=== PATIENT | male | born 2005 | race Caucasian/White ===

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

== ENCOUNTER 2025-03-14 07:00 | Outpatient (RCR) | payer OTHER, SELFPAY ==
--- NOTE | 2025-02-13 13:49 | HP.PTEVAL_ITS ---
Patient's Visit Information Visit Information Visit Information: CELESTINE BOWEN is a 20 year old M referred to Physical Therapy by LAZ GOMEZ with a diagnosis of FEMOROACETABULAR IMPINGEMENT AND SNAPPING MINERVA HIPS. Date of Evaluation: 02/04/25 Physical Therapist: Treva Maciel, PT, Cert MDT Visit Plan Frequency: 1-2x /Week Duration: 6 Weeks Plan: AVOID DEEP SQUATS AND EXTREME ROM/STRETCHING. FOCUS ON STRETCHING HIP FLEXORS ESPECIALLY ILIACUS IN COMFORTABLE RANGE/INTENSITY AND OTHER TIGHT HIP MUSCULATURE. STRENGTHEN HIP ABDUCTORS, GLUTS, CORE AND HIP EXTENSORS TO STABILIZE AND DECREASE JT STRESS. MANUAL THERAPY INCLUDING JT MOBS AND STM TO RESTORE MUCH NORMAL JT MECHANICS POSSIBLE AND REDUCE PAIN AND INFLAMMATION ALL IN PREPARATION FOR SURGERY. EXERCISE EX'S: CLAMSHELLS, BRIDGES, HIP HIKES, PLANKS, HSS, PIRIFORMIS STRETCHING, HIP FLEXOR STRETCHING, SL BALANCE AND DYNAMIC BALANCE ACTIVITIES. 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 Disability: NO Present symptoms: MINERVA HIP PAIN - BOTH ABOUT THE SAME. PAIN IS IN THE FRONT OF THE HIPS AND THE TIGHNESS IS ALL THROUGH THE FRONT AND OUTSIDE NOT SO MUCH THE BACK OF THE HIP JOINTS. Present since: ABOUT 7 YEARS. GENETIC CONDITION. Pain Scale: WORST 8/10, LEAST 2/10 Currently: 2/10 Is it getting better, worse or staying the same: GETTING WORSE Worse: ANY TYPE OF HIP STRETCHING, DISTANCE RUNNING (> 1 MILE), SEATED HIP ADDUCTOR STRENGTHENING, DEEP SQUATTING, LUNGES, SPLIT SQUATS, LONG PERIODS OF MVMT, WALKING EVEN LESS THAN A MILE - HIPS LOCK UP AND GET REALLY STIFF AND ONSET IS DELAYED. Better: NOTHING Disturbed sleep: ONLY IF LEGS MOVE AND PAIN IS PROVOKED BY THE MVMT Previous history/Previous treatment: NO FORMAL PT FOR HIPS OTHER THAN WHEN HERE FOR KNEE (MENISCUS TEAR 4 YEARS AGO). 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 YOGA FOR MOBILITY. MONTHS OF FOAM ROLLING FOR MOBILITY. NO MEDICAITONS, INJECTIONS OR SURGERIES. LOTS OF QUAD AND HIP FLEXOR STRENGTHENING AND HIP STRETCHING. ACCUPUNCTURE WITH NO BENEFIT. MASSAGE WITH NO BENEFIT. MULTIPLE CHIROPRACTORS - TRACTIONS, SACRAL MANIPULATIONS, SPINAL MANIPULATIONS, MANUAL STRETCHING AND OTHER EX'S - PAINFUL - TOLD ME TO WORK THROUGH THE PAIN. STATES ORTHO TOLD HIM TODAY THIS IS NOT BENEFICIAL BECAUSE IT IS THE BONE RUBBING. EVERY OTHER DOCTOR SAID STRENGTHEN YOUR QUADS. SPORTS MED ORTHO DR FROM [facility] TODAY SAID FOCUS MORE ON HIP FLEXORS (ILIACUS). HE REPORTS DOC TODAY SAID NOT TO FORCE STRETCHING. PATIENT REPORTS HIS DAD HAS THE SAME CONDITION AND BENEFITED FROM SURGERY TO SHAVE THE HIP BONE DOWN. STATES SURGERY IS ALSO RECOMMENDED FOR HIM. Treatment this episode: MELOXICAM Coughing/sneezing/straining: NEGATIVE FOR PAIN Gait: PATIENT DESCRIBES GAIT CHANGES FOLLOWS: WITH INCREASE DISTANCE AND PAIN GAIT TURNS INTO A WADDLE AND NEED TO USE TRUNK AND MOMENTUM TO SWING/ADVANCE LEG Bowel or Bladder Dysfunction: NO Accidents: NO Imaging: MINERVA HIP X-RAYS PMH/Recent major surgery: R KNEE meniscectomy 4 YEARS AGO. Objective Objective: THIS PATIENT AMBULATES INDEP'LY INTO PT. INDEP TRANSFERS. Sensory deficit: MINERVA LE LIGHT TOUCH SENSATION GROSSLY INTACT AND SYMMETRICAL ROM deficit: ACTIVE HIP FLEXION IN STANDING WITH KNEE FLEXION MINERVA TO 90 DEG. PROM SUPINE (DEG): HIP FLEX WITH SLR R 82, L 88 SKTC HIP FLEX R 140, L 140 HIP IR R 20, L 20 HIP ER R 27, L 31 HIP EXT R 18, L 26 KNEE FLEX PRONE R 122, L 123 KNEE FLEX SUPINE R 137, L 136 KNEE EXT FULL MINERVA ANKLE DORSI FLEX 18 DEG MINERVA STRENGTH (PEAK FORCE IN LBS): HIP FLEX R 19.6, 24.1 HIP ABD R 54.5, L 58.9 HIP EXT R 50.5, L 60.9 KNEE AND ANKLE STRENGTH 5/5 WITH MMT. Balance/Special Test Scores Lower Extremity Functional Score: 71 Goals Goal 1:: DECREASE C/O MINERVA HIP PAIN TO 0-3/10 WITH ADL'S. Goal Time Frame: 4-6 Weeks Goal 2:: INCREASE PAINFREE FUNCTIONAL ROM OF MINERVA LE'S TO EASE ADL'S. Goal Time Frame: 4-6 Weeks Goal 3:: IMPROVE PAINFREE FUNCTIONAL STRENGTH OF MINERVA LE'S TO EASE ADL'S. Goal Time Frame: 4-6 Weeks Goal 4:: INDEP HEP Goal Time Frame: 4-6 Weeks Rehabilitation Potential Physical Therapy Diagnosis: MINERVA HIP PAIN, WEAKNESS AND STIFFNESS LIMITING FUNCTIONAL ACTIVITIES. Rehabilitation Potential: Questionable Anticipated Interventions Patient/Client Instruction: Educate patient on: Condition, Plan of Care and Risk Factors For the Purpose of:: To improve self management Therapeutic Exercise to Include: Strength training, Flexibilty training, Neuromotor development and In an aquatic setting For the Purpose of:: To decrease pain, To decrease swelling/inflammation, To improve nutrient delivery to tissue, To improve muscle performance and motor function, To improve ability to perform ADL's, To increase tolerance to activity/condition/position, To improve ability of physical actions for home/community/work/leisure, To improve gait and locomotor functions, To increase flexibility/ROM and To improve self management Manual Therapy Techniques to Include: Mobilization and Soft tissue mobilization For the Purpose of:: To decrease pain, To decrease swelling/inflammation, To improve nutrient delivery to tissue, To decrease soft tissue restriction and To increase flexibility/ROM Cryotherapy (ice pack, ice massage): Yes Thermo therapy (hot pack): Yes Ultrasound (thermal/non thermal): Yes For the Purpose of:: To decrease pain, To decrease swelling/inflammation and To improve nutrient delivery to tissue Text: Thank you for the opportunity to evaluate your patient. For Medicare and Medicare HMO plans, please review the plan of care and approve it. It will need to be FAXED BACK to us at [phone] for Medicare purposes. For Medicare only, by signing this I certify the plan of care. Please let me know if there are questions or concerns regarding this plan of care. Physician Signature: Date:
--- NOTE | 2025-03-14 07:48 | HP.PTDCSUM ---
Discharge Summary D/C summary: It has been my pleasure to treat CELESTINE BOWEN referred by LAZ GOMEZ, with the diagnosis of FEMOROACETABULAR IMPINGEMENT AND SNAPPING MINERVA HIPS for a total of 7 visit(s). Discharge Date: 03/14/25 Please see the following information for a summary of their discharge status. Subjective Subjective: Pt. to reports being muscle sure. Pt. reports no major issues. He is to see physician next week. Pt. has been HEP compliant. He is not taking his medication due to illness. Pt. feels tight, but no marked issues. Pain R HIP: Pain Intensity (Out of 10): 1 L HIP: Pain Intensity (Out of 10): 1 Overall Improvement % Improvement: 0 Objective Objective/Function: MMT: R hip flex: 33.5# L hip: flex 29.4# Pt. continues to have a + FADDIR bilateraly. Pt. has limited hip flexion and IR motions secondary to pain. Pt. has normal gait pattern. SQUAT: reduced squat depth secondary to pain. Pt. has had some improvement with his strength, but continues to have a very limited ROM into flexion and IR motions. He is overall not much better. We focused on attempting to get more involvement of core and abdominal musculature. Pt. has limited hip flexor strength secondary to pain. Pt/. reports with rest he feels better, but when he goes back to any activity the pain comes right back. At this point in time I would recommend that he have imaging of B hips to determine if further pathology is present. Goals Goal 1:: DECREASE C/O MINERVA HIP PAIN TO 0-3/10 WITH ADL'S. Goal Progress: Progressing Goal 2:: INCREASE PAINFREE FUNCTIONAL ROM OF MINERVA LE'S TO EASE ADL'S. Goal Progress: Not Progressing Goal 3:: IMPROVE PAINFREE FUNCTIONAL STRENGTH OF MINERVA LE'S TO EASE ADL'S. Goal Progress: Not Progressing Goal 4:: INDEP HEP Goal Progress: Goal Met Plan Plan: I am DCing patient from PT at this point in time, due to lack of improvement. Pt. would benefit from further imaging to determine pathology. D/C Information d/c sentence: If there are questions or concerns regarding this patient's physical therapy, please feel free to call me at [phone]. Thank you for the referral of this patient. Sincerely, Brayden L Sipos, DPT Balance/Gait/Functional tests Balance/Special Test Scores Lower Extremity Functional Score: 70 Improvement % Improvement: 0
== END 2025-03-14 12:42 | disposition home or self-care (01) ==
LOC: PT 07:00
DX: M25.851 Other specified joint disorders, right hip (principal); M25.852 Other specified joint disorders, left hip
CPT/HCPCS: 97110; 97162; 97530